=== PATIENT | male | born 1990 | race African-American/Black ===

== ENCOUNTER 2016-12-09 00:53 | Observation (INO) | payer BC, OTHER ==
[~2016-12-09] VITALS: Ht 175.3 cm; Wt 105.7 kg
[2016-12-09] VITALS (8 sets, daily range): BP systolic 101–134; BP diastolic 45–72
--- NOTE | ~2016-12-09 | S ---
[facility] [place] [address] SURGICAL PATH RPT PROCEDURE Name: JORGE LUIS SILVER Room #: 438-P [facility] Lucinda Jaramillo#: [id number] Admission: 12/09/16 Date of : 89 Discharge: 12/10/16 Report #: [id number] Path Case #: [id number] PATHOLOGY REPORT COLLECTION DATE: 12/09/2016 RECEIVED DATE: 12/10/2016 SUBMITTING PHYS: Dr. Saqib Mallory OTHER PHYS: Dr. Tanvir Mazariegos SPECIMEN(S) RECEIVED: A.Appendix * * * * * * * * * * * * FINAL DIAGNOSIS: Appendix, appendectomy: - Acute appendicitis and periappendicitis. (MAURICIOM:; 12/13/2016) PATHOLOGIST: Marycruz Jones M.D. REPORT ELECTRONICALLY SIGNED BY: Marycruz Jones M.D. DATE/TIME: 12/13/2016 15:39 * * * * * * * * * * * * GROSS PATHOLOGY: Received in formalin labeled "gerda Quintana," is an appendix measuring 9.3 cm in length and 1.3 cm in diameter with a large amount of attached mesoappendix. The serosal surface is dusky choe and smooth displaying a small amount of pale white exudate. Sectioning reveals a dilated lumen filled with light brown fecal material and a light brown, roughened fecalith measuring 1.1 cm in maximum dimension. Gauntlet Pairer sections are submitted as follows: A1 proximal margin and bisected tip A2 additional paper sales representative cross-sections of appendix. (KAH; 12/11/2016) CLINICAL HISTORY: Pre-op dx: Acute appendicitis Post-op dx: Acute gangrenous appendicitis INITIAL CPT CODE(S): A; 64030 Professional services performed by [facility] at [address] , [place] [address] [facility] [address] [place] [address] SURGICAL PATH RPT PROCEDURE Name: JORGE LUIS SILVER Room #: 438-P JONO Jaramillo#: [id number] Admission: 12/09/16 Date of : [birth year] Discharge: 12/10/16 Report #: [id number] Path Case #: [id number] Technical services performed by [facility] at [address] [place] [address], [facility] [address] [address]. [facility] [address] [place] [address] PHONE: [phone] DIRECTOR: Jalen Wharton M.D. * * * END OF REPORT * * *
--- NOTE | ~2016-12-09 | O ---
[facility] [place] [address] OPERATIVE REPORT Name: JORGE LUIS SILVER [id number] Admission: 12/09/16 Attend Phys: Saqib Mallory MD, F Discharge: 12/10/16 Date of : [birth year] Report #: [id number] THIS REPORT FOR: //name// CC: Saqib Mazariegos DATE OF SERVICE: 12/09/2016 PREOPERATIVE DIAGNOSIS: Acute appendicitis. POSTOPERATIVE DIAGNOSIS: Acute gangrenous appendicitis, nonperforated. PROCEDURE: Laparoscopic appendectomy. SURGEON: Saqib Mallory MD. INTERMISSION COORDINATOR: AR Fonseca. INDICATIONS: A 25-year-old male with approximately 30 hours of abdominal pain, localized right lower quadrant associated with nausea and vomiting. A CT scan is consistent with appendicitis. OPERATIVE PROCEDURE: The patient had thorough discussion of procedure, benefits and risks. He gave informed consent to proceed. He was on preoperative IV antibiotics. He was brought to the operating room suite and had satisfactory induction of general endotracheal anesthesia. The patient's entire lower abdomen was prepped and draped in usual sterile procedure with DuraPrep solution. After draping was completed, an appropriate timeout was then performed. 0.5% plain Naropin was utilized at the infraumbilical port site. The fascia was incised. 30 mL of Naropin was injected circumferentially during the procedure. Introduction to the peritoneal cavity was performed under direct vision. The 5 mm Franca trocar was introduced. Pneumoperitoneum was established. The switch out was then made to a 12 mm Franca trocar with a balloon. The balloon was inflated. The left lower quadrant 5 mm trocar port and a lower midline 5 mm trocar port were then placed under direct vision. The appendix was adherent to the sidewall of the pelvis with fibrinous exudate. It was freed with blunt dissection. A window was made in the mesoappendix. The base of the appendix was crossclamped, ligated and divided with a VÍCTOR laparoscopic endoscopic 45 mm blue load. After this was accomplished, the mesoappendix was taken down with the [employer] scalpel energy device. The appendix was placed into an Endobag and removed from peritoneal cavity. A [id number] PDS suture was then placed under direct vision at the infraumbilical port site. The balloon 12 mm Franca was reinflated. Copious irrigation of the lower abdomen with saline was performed. Evacuation of all 2 liters of irrigation was performed. The base of the appendix was dry. Hemostasis was complete. A small amount of cloudy fluid in the pelvis at the [address] [address] OPERATIVE REPORT Name: JORGE LUIS SILVER Room #: 438-P [facility] Lucinda MJose Maria#: [id number] Admission: 12/09/16 Attend Phys: Saqib Mallory MD, F Discharge: 12/10/16 Date of : 90 Report #: [id number] beginning of the procedure had been aspirated. No other intra-abdominal pathology was noted. The 5 mm port sites were removed under direct vision. The Franca trocar was then removed. The jhtukc-[id number] PDS suture ligated in place. Skin margins were approximated with subcuticular 4-0 Monocryl. Dermabond was applied. The estimated blood loss was less than 10 mL. The patient had satisfactory operative course and returned to the recovery room in stable and satisfactory condition. <ELECTRONICALLY SIGNED> By: Saqib Mallory MD, FACS 12/10/16 1800 [id number] 1310 Saqib Mallory MD, FACS /nt
--- NOTE | ~2016-12-09 | H ---
[facility] [place] [address] HISTORY AND PHYSICAL Name: JORGE LUIS SILVER Room #: 438-P [facility]..#: [id number] Admission: 12/09/16 Attend Phys: Saqib Mallory MD, F Discharge: Date of : [birth year] Report #: [id number] THIS REPORT FOR: //name// CC: Saqib Mazariegos MD DATE OF SERVICE: 12/09/2016 CHIEF COMPLAINT: Lower abdominal pain. HISTORY OF PRESENT ILLNESS: This is an otherwise healthy 25-year-old -[place] male patient was seen in the [facility] with acute onset abdominal pain, awakening him from his sleep and worsening, prompting his visit to the Emergency Room. He had multiple episodes of nausea and vomiting. He was seen in the [facility] where he underwent a CT of the abdomen and pelvis showing changes consistent with acute appendicitis. His white blood cell count was elevated at 17.4. He is being admitted for further treatment. PAST MEDICAL HISTORY: Denies. PAST SURGICAL HISTORY: Tonsillectomy and adenoidectomy. MEDICATIONS: No routine medications at home. ALLERGIES: No known drug allergies. FAMILY HISTORY: Reviewed and noncontributory to this hospitalization. SOCIAL HISTORY: The patient denies use of tobacco or alcohol. He admits to smoking marijuana. 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 REVIEW OF SYSTEMS: As per history of present illness. GENERAL: In addition, in general, the patient denies unintentional weight loss. Denies fever or chills. HEENT: Denies changes in taste, vision, hearing or smell. RESPIRATORY: Denies shortness of breath, COPD or asthma. CARDIOVASCULAR: Denies chest pain or palpitations. GASTROINTESTINAL: As per history of present illness. Denies bright red blood per rectum. GENITOURINARY: Denies dysuria, urgency, increased urinary frequency or hematuria. MUSCULOSKELETAL: Denies myalgia, arthralgia or arthritis. NEUROLOGICAL: Denies headaches, numbness or tingling. PSYCHIATRIC: Denies depression, anxiety or suicidal ideations. [facility] [address] [place] [address] HISTORY AND PHYSICAL Name: JORGE LUIS SILVER Room #: 438-P [facility]#: [id number] Admission: 12/09/16 Attend Phys: Saqib Mallory MD, F Discharge: Date of : 90 Report #: [id number] SKIN AND INTEGUMENTARY: Denies new skin lesions, rashes or moles. ENDOCRINE: Denies polydipsia, polyuria, heat or cold intolerance. HEMATOLOGIC: Denies easy bleeding, bruising or anemia. All other review of systems is negative. PHYSICAL EXAMINATION: VITAL SIGNS: Temperature 36.9 degrees Celsius, blood pressure 134/70, pulse 91 and respirations 15. GENERAL: This is a well-developed, well-nourished, healthy appearing 25-year-old male patient, in no acute distress. HEENT: Atraumatic and normocephalic with moist mucosal membranes. Oropharynx is clear. He has no scleral icterus. NECK: Supple. No appreciable lymphadenopathy. Trachea is midline. CHEST: Clear bilaterally. No crackles or wheezes. CARDIOVASCULAR: Regular rate and rhythm. S1 and S2. ABDOMEN: Soft but tender to palpation, greatest in the right lower quadrant over the McBurney's point. The pain also extends down into the pelvis. He has no voluntary guarding. No palpable masses. No appreciable hernias. GENITOURINARY: Normal external male genitalia. EXTREMITIES: No clubbing, cyanosis or edema. NEUROLOGICAL: Cranial nerves 2 through 12 grossly intact. PSYCHIATRIC: Normal mood and affect. SKIN AND INTEGUMENTARY: No acute inflammatory changes, rashes or lesions are present. The patient has multiple tattoos. LABORATORY DATA: CBC shows a white blood cell count 17.4, hemoglobin 14.8, hematocrit 43.6 and platelets were unable to be terminated due to platelet clumping. Electrolytes showed a sodium of 138, potassium 4.4, chloride 102, CO2 27, BUN 10, creatinine 1.3 and glucose 145. Total bilirubin was normal. AST mildly elevated at 60, ALT normal at 65 and lipase normal at 123. Alkaline phosphatase was normal at 69. Urinalysis is pending. RADIOLOGIC STUDIES: CT of the abdomen and pelvis shows an 11 mm appendicolith with marked distention of the appendix with inflammation. Other smaller appendicoliths are also present at the tip of the appendix. The appendix itself measures 14 mm in diameter. There was no evidence for abscess. No free air was seen. IMPRESSION AND PLAN: This is an otherwise healthy 25-year-old male patient with right lower quadrant abdominal pain and clinical evidence for acute appendicitis. We discussed the pathophysiology and natural history of acute appendicitis as well as the treatment alternatives and surgical options. We discussed the laparoscopic appendectomy risks, benefits and expectations in [facility] [address] [place] [address] HISTORY AND PHYSICAL Name: JORGE LUIS SILVER Room #: 438-P [facility] Lucinda RachelleDoraLorenDora#: [id number] Admission: 12/09/16 Attend Phys: Saqib Mallory MD, F Discharge: Date of : 90 Report #: [id number] detail. The patient expressed understanding and wishes to proceed. He will be scheduled to undergo the operation later today. <ELECTRONICALLY SIGNED> By: Abhishek Yoon MD, FACS 12/10/16 0637 [id number] Abhishek Yoon MD, FACS /nt
[~2016-12-09 00:53] MED LIST: NORCO 5-325 TA1 EACH PO
[2016-12-09 01:56] LABS: CALCIUM 9.6 mg/dL (8.5-10.1); CREATININE 1.3 mg/dL (0.7-1.3); POTASSIUM 4.4 mmol/L (3.5-5.1); RBC 4.96 mil/uL (4.50-6.00); WBC 17.4 thou/uL (4.0-11.0)
[2016-12-09 01:58] LABS: HEMATOCRIT 43.6 % (42.0-52.0); HEMOGLOBIN 14.8 gm/dL (14.0-18.0); MCH 29.8 pg (26.0-34.0); MCHC 33.8 g/dL (28.0-37.0)
[2016-12-09 01:59] LABS: ALBUMIN 4.3 g/dL (3.4-5.0); MANUAL DIFF YES; TOTAL BILIRUBIN 0.5 mg/dL (<0.1-1.0); TOTAL PROTEIN 8.8 g/dL (6.4-8.2)
[2016-12-09 02:27] LABS: ABSOLUTE NEUTROPHILS 14.8 thou/uL (1.4-8.2); TOTAL CELL COUNT 100
[2016-12-09 02:30] LABS: PLATELET COUNT ND thou/uL (150-400)
[2016-12-10 04:25] VITALS: BP 115/58
[2016-12-10 06:40] LABS: HEMOGLOBIN 12.8 gm/dL (14.0-18.0); MCH 30.1 pg (26.0-34.0); MCHC 33.7 g/dL (28.0-37.0); MCV 89.3 fL (80.0-100.0); RBC 4.26 mil/uL (4.50-6.00); RDW 13.4 % (10.5-14.5); WBC 14.3 thou/uL (4.0-11.0)
[2016-12-10 08:00] VITALS: BP 101/55
[2016-12-10] MEDS ORDERED: HYDROCODONE-APA1 TA1 PO (13:17)
[2016-12-10] MEDS ORDERED: AUGMENTIN 875875 MG PO (13:18)
[2016-12-10 13:19] VITALS: BP 101/55
== END 2016-12-10 16:33 | disposition home or self-care (01) ==
LOC: ER 00:53 → EROBS 03:40 → 4S 03:40
PROVIDERS: Emergency Medicine; Surgery
DX: K35.80 Unspecified acute appendicitis (principal); R10.31 Right lower quadrant pain; R10.33 Periumbilical pain
CPT/HCPCS: 50010; 50101; 50249; 50411; 50555; 50739; 50740; 50944; 50962; 51489; 51975; 52265; 53307; 54022; 54118; 56525; 56526; 62110; 62900; 70005